=== PATIENT | female | born 1975 ===

== ENCOUNTER 2023-01-14 06:00 | Outpatient (RCR) | payer OTHER, SELFPAY | END 2023-01-28 23:59 | disposition home or self-care (01) | LOC: MOT 06:00 | PROVIDERS: Visit Provider Nurse Practitioner Family | DX: S67.22XD Crushing injury of left hand, subsequent encounter (principal); X58.XXXD Exposure to other specified factors, subsequent encounter | CPT/HCPCS: 97018; 97035; 97110; 97140; 97166 ==

== ENCOUNTER 2023-01-29 06:00 | Outpatient (RCR) | payer OTHER, SELFPAY | END 2023-02-28 23:59 | disposition home or self-care (01) | LOC: MOT 06:00 | PROVIDERS: Visit Provider Nurse Practitioner Family | DX: S67.22XD Crushing injury of left hand, subsequent encounter (principal); X58.XXXD Exposure to other specified factors, subsequent encounter | CPT/HCPCS: 97018; 97035; 97110; 97140 ==

== ENCOUNTER 2023-03-01 06:00 | Outpatient (RCR) | payer OTHER, SELFPAY | END 2023-03-30 23:59 | disposition home or self-care (01) | LOC: MOT 06:00 | PROVIDERS: Visit Provider Nurse Practitioner Family | DX: S67.22XD Crushing injury of left hand, subsequent encounter (principal); X50.1XXD Overexertion from prolonged static or awkward postures, subsequent encounter | CPT/HCPCS: 97018; 97110; 97140 ==

== ENCOUNTER 2023-03-31 06:00 | Outpatient (RCR) | payer OTHER, SELFPAY | END 2023-04-30 23:59 | disposition home or self-care (01) | LOC: MOT 06:00 | PROVIDERS: Visit Provider Nurse Practitioner Family | DX: S67.22XD Crushing injury of left hand, subsequent encounter (principal); W22.8XXD Striking against or struck by other objects, subsequent encounter | CPT/HCPCS: 97018; 97110; 97140 ==